=== PATIENT | female | born 1945 | race Caucasian/White ===

== ENCOUNTER 2023-12-07 08:57 | Day surgery (SDC) | payer OTHER ==
[2023-12-05 10:23] LABS: Protime INR 1.12
[2023-12-05 10:24] LABS: Absolute Lymphocytes (CBC) 1.6 K/uL (0.7-4.9); Lymphocytes % 19.7 % (15.3-44.8); MCV 92.7 fL (80-100); MPV 8.1 fL (7.6-11.3); Platelets 298 thou/uL (152-406); RBC Red Blood Cell Count 4.64 M/uL (3.86-4.86)
[2023-12-05 10:27] LABS: Potassium 3.7 mEq/L (3.5-5.1)
--- NOTE | 2023-12-06 13:25 | EKG ---
Test Date: 2023-12-05 Test Time: 10:39:00 [employer]: [employer]HE[employer] MEASUREMENT RESULTS: Intervals: Rate: 106 [place]: QRSD: 76 QT: 352 QTc: 467 [place]: P: [place]: QRS: 73 T: 59 INTERPRETIVE STATEMENTS: Atrial fibrillation with rapid ventricular response Abnormal ECG No previous ECG available for comparison Electronically Signed On 12-06-23 13:22:26 [employer]INFORMAT[employer] SCIENTIST by Orion Mckee
[2023-12-07] MEDS: NA CHLORIDE 0.9% 1,000 ML ONE (09:20)
[2023-12-07] MEDS ORDERED: propofoL 200 MG/20 ML VIAL IV ONE (11:53)
[2023-12-07] MEDS ORDERED: MIDAZOLAM HCL 2 MG/2 ML INJ ONE (11:53)
[2023-12-07] MEDS ORDERED: LIDOCAINE 1% MPF 5 ML VIAL ONE (11:53)
[2023-12-07] MEDS ORDERED: ONDANSETRON 4 MG/2 ML VIAL ONE (11:53)
[2023-12-07] MEDS ORDERED: FENTANYL CITR 100 MCG/2 ML ONE ×2 (11:53→13:17)
[2023-12-07] MEDS ORDERED: Phenylephrine HCl 10 MG/ML 1 ML VIAL ONE (12:41)
[2023-12-07] MEDS: LIDOCAINE HCL/EPINEPHRINE 20 ML MDV ONE (13:57)
[2023-12-07] MEDS: BACITRACIN OINTMENT 14 GM TUBE TOP ONE (13:58)
[2023-12-07] MEDS: ONDANSETRON 4 MG/2 ML VIAL ONE (14:25)
[2023-12-07] MEDS: HYDROCODONE/APAP 7.5/325 MG TAB ONE (15:00)
--- NOTE | 2023-12-07 15:09 | P.OP ---
Shot Lighter: NONE,NONE Preoperative diagnosis: NUB nose and left zygoma Postoperative diagnosis: Basal Cell Carcinoma nose and left zygoma Primary procedure: Local rotational flap left cheek Secondary procedure: Nasal excision, 1.2cm Other procedure(s): Dermal Autograft from left neck to nose Anesthesia: general Estimated blood loss: 30ml Specimen: nose and left zygoma for frozen section Operative Technique: The patient was brought to the operating room and placed under general anesthesia via laryngeal mask airway. The nasal lesion was examined and involved primarily the tip of the nose and appeared to be approximately 5 to 6 mm in diameter with small central ulceration but no crusting. The left zygoma lesion was examined and appeared to be approximately 1 x 1.5 cm with raised flesh-colored areas and easy bleeding after cleaning the area with alcohol. Both lesions had been marked by the surgeon in the preoperative area as targets for excision. The area surrounding each lesion was injected with 1% lidocaine with epinephrine. A total of 3 mL was used. The patient's face and neck was then prepped in Betadine and draped in a sterile fashion. The zygoma lesion was approached first. A 3 mm margin was designed around the edge of the gross lesion. A 15 blade scalpel was used to incise through the skin and and into the subcutaneous tissue. The lesion was sharply elevated using a scalpel from the underlying fatty tissues. A suture was placed at the superiormost aspect marking 12:00 and sent to pathology for frozen section analysis. Following removal of the lesion, the wound bed was treated with electrocautery in order to obtain hemostasis. The defect measured 2.4 x 1.8 cm. The superior edge approximated the border between the left lateral lower eyelid and cheek. The edge of the orbicularis jose muscle was visible at the base of the wound in the superior aspect. Bovie electrocautery was used to elevate the surrounding tissues laterally inferiorly and medially in preparation for future closure options. Closure was deferred until intraoperative consultation with the pathologist was completed. The nasal lesion was then approached. A 3 mm margin was designed around the edge of the gross lesion. A 15 blade scalpel was used to incise through the skin and into the subcutaneous tissue. The lesion was sharply elevated using a scalpel from the underlying soft tissues. A suture was placed at the superiormost aspect marking 12:00 for orientation and sent to pathology for frozen section analysis. Following removal of the lesion the wound bed was treated with electrocautery in order to obtain hemostasis. The defect measured 1.2 x 1 cm. The pathologist confirmed that the zygoma lesion was a basal cell carcinoma with peripheral and deep margins negative. The pathologist confirmed that the nasal lesion was also a basal cell carcinoma with negative peripheral margin but a focally positive deep margin. In initial consultation with the pathologist a plan was made to send a new deep margin as a measure of confirmation for permanent section only. On reevaluation of the nasal wound bed, following cauterization for hemostasis the soft tissues were minimal and majority of the superficial remaining soft tissue had been destroyed and desiccated the the cauterization. There was minimal soft tissue remaining overlying the tip of the lower lateral cartilages and the decision was made to forego additional resection. Decision was made for a local tissue rearrangement flap for the zygoma defect. A rhomboid rotational flap was designed, cut and rotated into position. The flap was secured using 4-0 Vicryl sutures followed by superficial closure with 5-0 fast absorbing gut running sutures. After rotation and closure of the flap, there was mild tissue tendency at the lateral and medial aspect but given the patient's age and overall skin condition I elected to forego additional excision of otherwise healthy appearing skin. If the patient has excess skin redundancy following healing and relaxation of the wound, we can consider elective revision. Decision was made for dermal autograft to the nasal defect. The left neck skin was cleaned and a 1.5 x 2.5 fusiform excision of the epidermis and dermis was sharply harvested using a 15 blade scalpel. The skin graft was set aside and the base of the donor site was cauterized with needlepoint electrocautery to obtain hemostasis. Due to the thinness of the skin and the patient's overall skin laxity of the neck, no significant undermining was required and the donor site was closed in a primary fashion using 5-0 fast-absorbing gut sutures. The harvested skin graft was then trimmed to the appropriate size and secured to the nasal defect in a interrupted fashion using 3-0 silk sutures. The ends of the suture were left long and a Xeroform bolster was secured to the site. The patient's skin was cleaned and antibiotic ointment was applied to the left thigh, and left neck sites. The patient was then returned to care of anesthesia for awakening extubation in the operating room which proceeded without difficulty. Patient will be discharged home later today and follow-up with Dr. Morris's office in approximately 10 days for evaluation of healing. Fluids & blood products: see anesthesia record, crystalloid Transferred to: Recovery Room Condition: Good
[2023-12-07 16:09] VITALS: BP 124/82; TEMP 97.1; O2SAT 97
== END 2023-12-07 15:50 | disposition home or self-care (01) ==
LOC: OR 08:57
PROVIDERS: ATTEND Otolaryngology
PROC: 0JB50ZZ Excision of Left Neck Subcutaneous Tissue and Fascia, Open Approach (ICD-10-PCS; 2023-12-07)
PROC: 0JX10ZB Transfer Face Subcutaneous Tissue and Fascia with Skin and Subcutaneous Tissue, Open Approach (ICD-10-PCS; 2023-12-07)
PROC: 0JB10ZZ Excision of Face Subcutaneous Tissue and Fascia, Open Approach (ICD-10-PCS; 2023-12-07)
PROC: 0HR1X73 Replacement of Face Skin with Autologous Tissue Substitute, Full Thickness, External Approach (ICD-10-PCS; principal; 2023-12-07 11:30)
DX: C44.311 Basal cell carcinoma of skin of nose (principal); C44.329 Squamous cell carcinoma of skin of other parts of face; I10 Essential (primary) hypertension; I48.91 Unspecified atrial fibrillation; E11.9 Type 2 diabetes mellitus without complications; E78.5 Hyperlipidemia, unspecified; N18.9 Chronic kidney disease, unspecified; K21.9 Gastro-esophageal reflux disease without esophagitis
CPT/HCPCS: 11642; 14040; 93005; 85025; 80048; 36415; 85610; 82947 ×3; 88331; 88332; 88305; 85730; 15135; J2704; J2001; J2371; J2250; J3010 ×2; J2405 ×2; J7030